=== PATIENT | female | born 1935 | race Two or more races ===

== ENCOUNTER 2017-06-10 09:19 | Outpatient (CLI) | payer OTHER ==
[~2017-06-10 09:19] MED LIST: ADVIL100 M1 PO; ADVIL100 MG PO; BIOTIN-D1 GM PO; CALTRATE 600 W-1 TAB PO; IMODIUM A-D2 MG PO; INDERAL PO
== END 2017-06-10 18:03 | disposition home or self-care (01) ==
LOC: TOM 09:19 → NUCLEAR 11:00 → TOM 18:03
DX: M54.5 Low back pain (principal); M80.00XA Age-related osteoporosis with current pathological fracture, unspecified site, initial encounter for fracture

== ENCOUNTER 2017-06-10 09:22 | Outpatient (CLI) | payer OTHER | END 2017-06-10 18:03 | disposition home or self-care (01) | LOC: RAD 09:22 | DX: M54.5 Low back pain (principal) ==

== ENCOUNTER 2017-06-10 11:06 | Outpatient (CLI) | payer OTHER | END 2017-06-10 11:47 | disposition home or self-care (01) | LOC: NUCLEAR 11:06 | DX: M80.00XA Age-related osteoporosis with current pathological fracture, unspecified site, initial encounter for fracture (principal); M81.0 Age-related osteoporosis without current pathological fracture ==

== ENCOUNTER 2018-09-23 09:50 | Outpatient (CLI) | payer OTHER ==
[~2018-09-23] VITALS: Ht 154.9 cm; Wt 34.0 kg
== END 2018-09-23 10:10 | disposition home or self-care (01) ==
LOC: OFIC 805 09:50
DX: J31.0 Chronic rhinitis (principal); H61.22 Impacted cerumen, left ear

== ENCOUNTER 2019-01-27 15:43 | Outpatient (CLI) | payer OTHER | END 2019-01-27 16:00 | disposition home or self-care (01) | LOC: MRI 15:43 | DX: I63.30 Cerebral infarction due to thrombosis of unspecified cerebral artery (principal); G50.0 Trigeminal neuralgia | CPT/HCPCS: 70551 ==

== ENCOUNTER → 2020-10-11 14:56 | Outpatient (CLI) | payer OTHER | END | disposition home or self-care (01) | LOC: RAD 14:56 | PROVIDERS: ATTEND Psychiatry & Neurology Clinical Neurophysiology | DX: M41.85 Other forms of scoliosis, thoracolumbar region (principal) ==

== ENCOUNTER 2021-11-22 12:53 | Outpatient (CLI) | payer OTHER | END 2021-11-22 12:59 | disposition home or self-care (01) | LOC: MAMO-SONO 12:53 | PROVIDERS: ATTEND Psychiatry & Neurology Clinical Neurophysiology | DX: G70.00 Myasthenia gravis without (acute) exacerbation (principal); Z80.3 Family history of malignant neoplasm of breast ==

== ENCOUNTER → 2021-11-22 | Outpatient (CLI) | payer OTHER | END | disposition home or self-care (01) | LOC: NUCLEAR 11-08 11:30 | PROVIDERS: ATTEND Psychiatry & Neurology Clinical Neurophysiology | DX: M41.9 Scoliosis, unspecified (principal); G70.00 Myasthenia gravis without (acute) exacerbation; Z88.1 Allergy status to other antibiotic agents ==

== ENCOUNTER 2022-04-20 13:58 | Emergency (ER) | payer OTHER ==
[~2022-04-20] VITALS: Ht 152.4 cm; Wt 43.1 kg
== END 2022-04-20 19:53 | disposition home or self-care (01) ==
LOC: ER 13:58
DX: K00.6 Disturbances in tooth eruption (principal); J06.9 Acute upper respiratory infection, unspecified; Z88.2 Allergy status to sulfonamides; K05.10 Chronic gingivitis, plaque induced; Z20.822 Contact with and (suspected) exposure to COVID-19

== ENCOUNTER 2022-12-05 11:08 | Outpatient (CLI) | payer OTHER | END 2022-12-05 11:40 | disposition home or self-care (01) | LOC: MRI 11:08 | PROVIDERS: ATTEND Psychiatry & Neurology Clinical Neurophysiology | DX: M62.81 Muscle weakness (generalized) (principal); R20.0 Anesthesia of skin | CPT/HCPCS: 70551 ==

== ENCOUNTER 2023-07-23 14:20 | Outpatient (CLI) | payer OTHER | END 2023-07-23 14:25 | disposition home or self-care (01) | LOC: RAD 14:20 | PROVIDERS: ATTEND Psychiatry & Neurology Clinical Neurophysiology | DX: G70.00 Myasthenia gravis without (acute) exacerbation (principal); M41.9 Scoliosis, unspecified; G45.1 Carotid artery syndrome (hemispheric) ==

== ENCOUNTER → 2023-12-09 13:47 | Outpatient (CLI) | payer OTHER | END | disposition home or self-care (01) | LOC: NUCLEAR 13:45 | PROVIDERS: ATTEND Internal Medicine Rheumatology | DX: M81.0 Age-related osteoporosis without current pathological fracture (principal) ==

== ENCOUNTER 2023-12-09 14:53 | Outpatient (CLI) | payer OTHER | END 2023-12-09 15:00 | disposition home or self-care (01) | LOC: RAD 14:53 | DX: I27.0 Primary pulmonary hypertension (principal); M41.9 Scoliosis, unspecified ==

== ENCOUNTER 2025-01-19 10:55 | Outpatient (CLI) | payer OTHER | END 2025-01-19 10:56 | disposition home or self-care (01) | LOC: NUCLEAR 10:55 | DX: M81.0 Age-related osteoporosis without current pathological fracture (principal) ==